=== PATIENT | male | born 1995 | race Caucasian/White ===

== ENCOUNTER 2025-03-31 17:38 | Emergency (ER) | payer OTHER, BC, SELFPAY ==
[2025-03-31 17:42] VITALS: BP 125/74; PULSE 98; RESP 16; TEMP 36.7; O2SAT 100; BMI 21.1
--- NOTE | 2025-03-31 17:48 | ED.RN ---
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 HE VERFIED WITH SHADE PHELPS.
--- NOTE | 2025-03-31 20:56 | EDS_ITS ---
HPI <JOCE Wilson - Last Filed: 03/31/25 21:05> History of Present Illness Chief Complaint: Laceration Narrative Narrative: Patient presenting today with a laceration to his right elbow. 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 His tetanus is not up-to-date but he is not wanting to update it at this time. He is right-handed. No blood thinners. PFSH <JOCE Wilson - Last Filed: 03/31/25 21:05> PFSH Allergy/AdvReac Type Severity Reaction Status Date / Time No Known Allergies Allergy Verified 03/31/25 17:42 Social History Smoking Status: Current every day smoker tobacco type: cigarettes ROS <JOCE Wilson - Last Filed: 03/31/25 21:05> ROS ED Constitutional Constitutional ED: Denies chills or fever(s) Cardiovascular Cardiovascular: Denies chest pain Respiratory/Chest Respiratory/Chest: Denies dyspnea Gastrointestinal Gastrointestinal: Denies abdominal pain Musculoskeletal Musculoskeletal: Denies arthralgias Integumentary Reports laceration Neurologic Neurologic: Denies paresthesias EXAM <JOCE Wilson Last Filed: 03/31/25 21:05> Physical Exam Const Vital Signs: 03/31/25 17:42 Temperature 98.0 F Temperature Source Oral Pulse Rate 98 Respiratory Rate 16 Blood Pressure 125/74 H Blood Pressure Mean 91 Pulse Ox 100 Oxygen Delivery Method Room Air Positive well nourished, well developed and no apparent distress General Appearance ED: well developed HEENT Reports normocephalic and head/scalp atraumatic Mouth ED: Yes moist mucous membranes normal Eyes PERRL and EOMs intact bilaterally Neck full ROM and supple Chest Wall inspection of chest normal Resp normal respiratory effort and clear to auscultation bilaterally Cardio regular rate and regular rhythm Back/Spine normal ROM and normal to inspection Extremity normal to inspection and full ROM Extremity Narrative: 4 cm full-thickness linear laceration to the right elbow olecranon process. Full flexion and extension of the elbow. No active bleeding. Right radial pulse 2+, good cap refill, sensation intact. Neuro moves all extremities, no focal motor deficits and no sensory deficits noted Sensorium / Orientation: awake and alert Psych mental status grossly normal and thought process normal Skin Skin Narrative: Aside from right elbow laceration no other rashes or lesions noted [facility] <JOCE Wilson - Last Filed: 03/31/25 21:05> [facility] Narrative Medical decision making narrative: Patient presenting today with a right elbow laceration. This will require suture repair. It was a solid piece of metal, he does not have concerns for foreign body. He does not have tenderness to the elbow and has full range of motion. I offered to update his tetanus and he declined. He tolerated procedure well. Wound care instructions were discussed with him. Recommended he have sutures removed in 7 to 10 days by PCP. He will be discharged home in stable condition. Return instructions were discussed with him <Dr. Karen Anaya DO - Last Filed: 03/31/25 21:11> [facility] Narrative Medical decision making narrative: Patient presenting today with a right elbow laceration. This will require suture repair. It was a solid piece of metal, he does not have concerns for foreign body. He does not have tenderness to the elbow and has full range of motion. I offered to update his tetanus and he declined. He tolerated procedure well. Wound care instructions were discussed with him. Recommended he have sutures removed in 7 to 10 days by PCP. He will be discharged home in stable condition. Return instructions were discussed with him I have personally performed a face to face assessment of the patient and have reviewed the LIZZY Note. I performed a substantive portion of the visit including all aspects of the following. My salguero findings include: History is [patient presents with laceration to right elbow that occurred while at work today. Patient states that he was pulling on some metal and there was piece of metal behind him that lacerated his right elbow. Patient is right-hand dominant. Unsure of his last tetanus but does not want a tetanus shot. Denies any numbness or tingling or loss of function.] Exam is [HEENT-PERRLA, EOMI. Cranial nerves II through XII grossly intact. TMs clear. Mucous membranes moist. No adenopathy. Cardiovascular-regular rate and rhythm without murmur or ectopy Lungs-clear to auscultation, chest wall stable without crepitus or subcu emphysema Abdomen-normoactive bowel sounds, soft, nontender, no rebound or rigidity, no peritoneal signs. Extremities-intact ?4. Right elbow-patient has a 4 cm laceration horizontal across the posterior elbow proximal to the olecranon. No foreign bodies noted within the wound. He is neurovascularly intact distally. Normal range of motion flexion extension against resistance at the elbow. Medical Decison Making [patient with laceration to his elbow. Do not feel any imaging is indicated. Do not suspect foreign body. Seen in conjunction with physician occupational therapist's assistant please see procedure note for suture repair. Advised to follow-up in 10 days for suture removal with corporate care.] Other additions or changes: [None] Procedures <JOCE Wilson - Last Filed: 03/31/25 21:05> Lacerations Laceration: Length: 1.57 in Depth: Sub Q Shape: Linear Prep: Chlorhexadine Laceration repair: Irrigated, Lidocaine, Skin sutures and Wound explored Number of Sutures/Chai: 5 Suture Information: Ethilon, Horizontal, Mattress and 4-0 Comment: Wound bandaged with bacitracin ointment. Discharge Plan Triage Chief Complaint: Laceration ED Midlevel Provider: Edita Cuellar ED Provider: Karen Anaya Dx/Rx/DC Orders Clinical Impression: Laceration of elbow, right Instructions: ED Laceration Extremity Primary Care Provider: Care Physician,No Primary Referrals: [facility] [Provider Group] [facility] [Group of Physicians] - 10 Day for suture removal Care Physician,No Primary [Primary Care Provider] - Activity Restrictions/Additional Instructions: I referred you to a PCP, please have sutures removed in 7 to 10 days. Please return for any signs of infection. Print Language: [place]erratian Disposition Disposition: Home, Self Care
== END 2025-03-31 21:13 | disposition home or self-care (01) ==
PROVIDERS: Emergency Provider Emergency Medicine; Visit Provider Emergency Medicine
DX: S51.011A Laceration without foreign body of right elbow, initial encounter (principal); F17.210 Nicotine dependence, cigarettes, uncomplicated; W31.1XXA Contact with metalworking machines, initial encounter; Y99.0 Civilian activity done for income or pay; Y92.89 Other specified places as the place of occurrence of the external cause
CPT/HCPCS: 12001; 99282